=== PATIENT | male | born 1990 | race Caucasian/White ===

== ENCOUNTER 2016-04-22 17:42 | Inpatient (IN) | payer OTHER ==
[~2016-04-22] VITALS: Ht 182.9 cm; Wt 65.4 kg
[2016-04-22] MEDS ORDERED: XANA0.25 PO (17:56)
[2016-04-22 18:31] LABS: MEAN CORPUSCULAR HEMOGLOBIN 28.4 pg (27.0-33.0); MEAN CORPUSCULAR HGB CONC 33.7 g/dl (32.0-36.5); MEAN CORPUSCULAR VOLUME 84.3 fl (80.0-96.0); RED CELL DISTRIBUTION WIDTH 13.2 % (11.5-14.5); WHITE BLOOD COUNT 8.5 K/mm3 (4.0-10.0)
[2016-04-22 18:49] LABS: METHADONE URINE NEGATIVE (NEGATIVE)
[2016-04-22 18:58] LABS: ALBUMIN 4.1 GM/DL (3.2-5.2); ALBUMIN/GLOBULIN RATIO 1.17 (1.00-1.93); ALKALINE PHOSPHATASE 79 U/L (45-117); ALT/SGPT 18 U/L (12-78); ANION GAP 8 MEQ/L (8-16); AST/SGOT 12 U/L (15-37); BILIRUBIN,DIRECT < 0.1 MG/DL (0.0-0.2); BILIRUBIN,TOTAL 0.2 MG/DL (0.2-1.0); BLOOD UREA NITROGEN 19 MG/DL (7-18); CALCIUM LEVEL 8.3 MG/DL (8.5-10.1); CARBON DIOXIDE LEVEL 30 MEQ/L (21-32); CHLORIDE LEVEL 105 MEQ/L (98-107); CREATININE FOR GFR 0.99 MG/DL (0.70-1.30); GLOMERULAR FILTRATION RATE > 60.0 (>60); GLUCOSE, FASTING 99 MG/DL (70-105); SODIUM LEVEL 143 MEQ/L (136-145); TOTAL PROTEIN 7.6 GM/DL (6.4-8.2)
[2016-04-22] MEDS ORDERED: ESCI20TA PO (19:52)
[2016-04-22] MEDS ORDERED: diphenhydrAMINE INJ 50MG/ML VIAL (J1200) IM ONE (21:15)
[2016-04-22] MEDS ORDERED: HALOPERIDOL 5 MG/ML VIAL (J1630) IM ONE (21:15)
[2016-04-22] MEDS ORDERED: LORazepam 2 MG/ML VIAL (J2060) IM ONE (21:15)
[2016-04-22] MEDS ORDERED: MAALOX 30 ML SUSP *UDC PO PRN (21:45)
[2016-04-22] MEDS ORDERED: MOM 30ML SUSPENSION UDC PO PRN (21:45)
[2016-04-22] MEDS ORDERED: ACETAMINOPHEN TAB 650MG DOSE (2X325MG) PO PRN (21:45)
[2016-04-23 01:23] VITALS: BP 114/66
[2016-04-23] MEDS ORDERED: HALOPERIDOL 5 MG TAB PO PRN (13:30)
[2016-04-23] MEDS ORDERED: diphenhydrAMINE 50 MG CAP PO PRN (13:30)
[2016-04-23 18:00] VITALS: BP 132/62
[2016-04-23] MEDS: NICOTINE 21MG/24HR 1 EA TRANSDERMAL TD SCH (19:43)
[2016-04-23] MEDS: LORazepam 2 MG TAB PO PRN (21:03)
[2016-04-23] MEDS: traZODone 50 MG TAB PO PRN (21:03)
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
[2016-04-24] MEDS: LORazepam 2 MG TAB PO PRN ×3 (06:26→21:29)
[2016-04-24 06:37] VITALS: BP 112/73
[2016-04-24] MEDS: NICOTINE 21MG/24HR 1 EA TRANSDERMAL TD SCH (08:31)
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
[2016-04-24 11:32] LABS: FREE T4 1.15 NG/DL (0.76-1.46)
[2016-04-24 18:00] VITALS: BP 129/82
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
[2016-04-24] MEDS: traZODone 50 MG TAB PO PRN (21:29)
[2016-04-25] MEDS: LORazepam 2 MG TAB PO PRN ×2 (01:47→06:46)
[2016-04-25 06:34] VITALS: BP 126/90
[2016-04-25] MEDS ORDERED: NICO21PAT TD (08:19)
[2016-04-25] MEDS: NICOTINE 21MG/24HR 1 EA TRANSDERMAL TD SCH (09:00)
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
--- NOTE | 2016-04-25 22:08 | ECGEPIP ---
Stationary ECG Study [facility] Test Date: 2016-04-24 Pat Name: RAISA MATTHEWS Department: Room: [place] [address] Gender: M Respiratory Services Manager: ZAID : 1990 Requested By: Agatha Clayton Order Number: [id number] Reading MD: Alexandra Espitia Measurements Intervals [place] Rate: 111 P: 81 [place]: 136 QRS: 100 QRSD: 100 T: 58 QT: 318 QTc: 434 Interpretive Statements SINUS TACHYCARDIA RIGHT ATRIAL ENLARGEMENT BORDERLINE RIGHT AXIS DEVIATION SIMILAR 12/25/15 Electronically Signed On 04-25-2016 22:07:57 EDT by Alexandra Espitia
== END 2016-04-25 10:00 | disposition home or self-care (01) | DRG 881 ==
LOC: M ED 18:44 → M ED INP 21:41 → M PSY 04-23 01:25
PROVIDERS: ADMIT Psychiatry & Neurology Child & Adolescent Psychiatry; ATTEND Internal Medicine Addiction Medicine
DX: F32.9 Major depressive disorder, single episode, unspecified (principal); F41.9 Anxiety disorder, unspecified; F17.210 Nicotine dependence, cigarettes, uncomplicated; M25.511 Pain in right shoulder; R07.81 Pleurodynia; R94.6 Abnormal results of thyroid function studies; Z63.9 Problem related to primary support group, unspecified; Z91.5 Personal history of self-harm; Z88.1 Allergy status to other antibiotic agents; Z79.899 Other long term (current) drug therapy

== ENCOUNTER → 2016-11-07 | Outpatient (CLI) | payer OTHER, MEDICAID ==
[~2016-11-07] MED LIST: ESCI20TA PO; NICO21PAT TD; XANA0.25 PO
== END ==
LOC: M OUTALCOH 08:25
PROVIDERS: ATTEND Psychiatry & Neurology Psychiatry
DX: F14.20 Cocaine dependence, uncomplicated (principal); F12.20 Cannabis dependence, uncomplicated

== ENCOUNTER 2018-02-28 01:26 | Emergency (ER) | payer MEDICAID, OTHER ==
[~2018-02-28 01:26] MED LIST changes: +TOBR0.3S OP; +ZITHTAB PO
[2018-02-28] MEDS ORDERED: NS 1,000 ML IV SCH (01:37)
[2018-02-28 01:40] VITALS: BP 128/70
[2018-02-28 01:40] LABS: HEMATOCRIT 43.9 % (42.0-52.0); HEMOGLOBIN 14.9 g/dl (13.5-17.5); MEAN CORPUSCULAR HEMOGLOBIN 29.5 pg (27.0-33.0); MEAN CORPUSCULAR HGB CONC 33.9 g/dl (32.0-36.5); MEAN CORPUSCULAR VOLUME 86.9 fl (80.0-96.0); PLATELET COUNT, AUTOMATED 200 10^3/uL (150-450); RED BLOOD COUNT 5.05 10^6/uL (4.30-6.10); WHITE BLOOD COUNT 11.9 10^3/uL (4.0-10.0)
[2018-02-28 02:11] LABS: ACETAMINOPHEN LEVEL < 2.0 UG/ML (10.0-30.0); ALBUMIN 4.4 GM/DL (3.2-5.2); ALT/SGPT 219 U/L (12-78); BILIRUBIN,DIRECT 0.1 MG/DL (0.0-0.2); BILIRUBIN,TOTAL 0.2 MG/DL (0.2-1.0); BLOOD UREA NITROGEN 17 MG/DL (7-18); CALCIUM LEVEL 8.6 MG/DL (8.5-10.1); CARBON DIOXIDE LEVEL 23 MEQ/L (21-32); CHLORIDE LEVEL 108 MEQ/L (98-107); CREATININE FOR GFR 1.42 MG/DL (0.70-1.30); ETHYL ALCOHOL (ETHANOL) 0.164 % (0.000-0.010); GLOMERULAR FILTRATION RATE > 60.0 (>60); GLUCOSE, FASTING 169 MG/DL (70-100); POTASSIUM SERUM 3.9 MEQ/L (3.5-5.1); SALICYLATE LEVEL < 1.7 MG/DL (5.0-30.0); SODIUM LEVEL 142 MEQ/L (136-145); TOTAL PROTEIN 7.9 GM/DL (6.4-8.2)
--- NOTE | 2018-02-28 08:13 | REP ---
Portable chest: Single view. History: Unresponsive. Comparison study: December 25, 2015 Findings: The lungs are well inflated and clear. There is no evidence of pneumothorax or hydrothorax. Mediastinum is not widened. Heart size is normal. No fracture or bony destructive lesion is seen. Pulmonary vasculature is not increased. EKG monitoring electrodes overlie the chest. Impression: No active disease. Electronically Signed by Shaheed Morel MD 02/28/2018 08:04 A
--- NOTE | 2018-03-01 10:29 | ECGEPIP ---
Stationary ECG Study [facility] - ED Test Date: 2018-02-28 Pat Name: RAISA MATTHEWS Department: Room: - Gender: M Math Interventionist: : 1990 Requested By: LATANYA Lopez Order Number: [id number] Reading MD: Nadine Joseph Measurements Intervals [place] Rate: 102 P: 71 [place]: 148 QRS: 64 QRSD: 98 T: 28 QT: 325 QTc: 425 Interpretive Statements SINUS TACHYCARDIA ABNORMAL RHYTHM ECG RAD SIMILAR 04/24/16 Electronically Signed On 03-01-2018 10:29:37 EST by Nadine Joseph
== END 2018-02-28 02:21 | disposition left against medical advice (07) ==
LOC: EDBD 01:26 → M ED 01:26
DX: T40.1X1A Poisoning by heroin, accidental (unintentional), initial encounter (principal); X58.XXXA Exposure to other specified factors, initial encounter; Y92.89 Other specified places as the place of occurrence of the external cause; F33.9 Major depressive disorder, recurrent, unspecified; F41.9 Anxiety disorder, unspecified; Z88.1 Allergy status to other antibiotic agents; F19.10 Other psychoactive substance abuse, uncomplicated
CPT/HCPCS: 36415; 71045; 80048; 80076; 84443; 85027; 99284; G0480

== ENCOUNTER 2018-02-28 23:35 | Emergency (ER) | payer MEDICAID ==
[2018-02-28 23:38] VITALS: BP 132/81
== END 2018-02-28 23:43 | disposition left against medical advice (07) ==
LOC: M ED 23:35
DX: Z53.29 Procedure and treatment not carried out because of patient's decision for other reasons (principal)

== ENCOUNTER → 2019-01-31 | Outpatient (REF) | payer OTHER | LOC: M SFHCLERA 11:22 | PROVIDERS: ATTEND Nurse Practitioner Family | DX: R50.9 Fever, unspecified (principal) ==

== ENCOUNTER → 2022-09-01 | Outpatient (CLI) | payer OTHER ==
[~2022-09-01] MED LIST changes: -ESCI20TA PO; +ESCI20TA16 PO; -TOBR0.3S OP; +TOBR0.3S10 OP
[2022-09-01 13:11] LABS: BASO # 0.1 10^3/uL (0.0-0.2); BASO % 0.7 % (0.0-1.0); EOS # 0.1 10^3/uL (0.0-0.5); EOS % 1.2 % (0.0-3.0); HEMATOCRIT 33.4 % (42.0-52.0); HEMOGLOBIN 11.5 g/dl (13.5-17.5); LYMPH # 0.9 10^3/uL (1.5-5.0); MEAN CORPUSCULAR HEMOGLOBIN 29.1 pg (27.0-33.0); MEAN CORPUSCULAR HGB CONC 34.4 g/dl (32.0-36.5); MEAN CORPUSCULAR VOLUME 84.6 fl (80.0-96.0); MONO # 0.7 10^3/uL (0.0-0.8); MONO % 9.2 % (2.0-8.0); NEUTROPHILS # 5.6 10^3/uL (1.5-8.5); NEUTROPHILS % 76.3 % (36.0-66.0); PLATELET COUNT, AUTOMATED 273 10^3/uL (150-450); RED BLOOD COUNT 3.95 10^6/uL (4.30-6.10); WHITE BLOOD COUNT 7.3 10^3/uL (4.0-10.0)
[2022-09-01 13:39] LABS: ALBUMIN 3.3 G/DL (3.2-5.2); ALKALINE PHOSPHATASE 95 U/L (46-116); ALT/SGPT 62 U/L (7.0-40); AST/SGOT 45 U/L (<34); BILIRUBIN,TOTAL 0.3 MG/DL (0.3-1.2); BLOOD UREA NITROGEN 15 MG/DL (9-23); CALCIUM LEVEL 8.3 MG/DL (8.5-10.1); CARBON DIOXIDE LEVEL 29 MMOL/L (20-31); CHLORIDE LEVEL 104 MMOL/L (98-107); GLOMERULAR FILTRATION RATE > 60.0 (>60); GLUCOSE, FASTING 64 MG/DL (60-100); POTASSIUM SERUM 4.2 MMOL/L (3.5-5.1); SODIUM LEVEL 141 MMOL/L (136-145); TOTAL PROTEIN 6.8 G/DL (5.7-8.2)
[2022-09-03 02:13] LABS: IgG P18 AB Absent (.); IgG P23 AB Absent (.); IgG P28 AB Absent (.); IgG P30 AB Absent (.); IgG P39 AB Present (.); IgG P41 AB Present (.); IgG P45 AB Absent (.); IgG P66 AB Absent (.); IgG P93 AB Absent (.); IgM P23 AB Present (.); IgM P39 AB Present (.); IgM P41 AB Present (.); LYME IgG WB INTERPRETATION Negative (.); LYME IgM WB INTERPRETATION Positive (.)
== END ==
LOC: M WUC 09:08
PROVIDERS: ATTEND Physician Assistant
DX: L03.319 Cellulitis of trunk, unspecified (principal)

== ENCOUNTER → 2024-08-26 | Outpatient (REF) | payer OTHER | LOC: M SFHCLERA 16:03 | PROVIDERS: ATTEND Internal Medicine | DX: Z00.00 Encounter for general adult medical examination without abnormal findings (principal) ==

== ENCOUNTER → 2024-09-23 | Outpatient (CLI) | payer OTHER ==
[2024-09-23 13:31] LABS: BASO # 0.1 10^3/uL (0.0-0.2); BASO % 0.9 % (0.0-1.0); EOS # 0.1 10^3/uL (0.0-0.5); EOS % 0.9 % (0.0-3.0); LYMPH # 1.2 10^3/uL (1.5-5.0); LYMPH % 21.7 % (24.0-44.0); MONO # 0.5 10^3/uL (0.0-0.8); MONO % 8.7 % (2.0-8.0); NEUTROPHILS # 3.7 10^3/uL (1.5-8.5); NEUTROPHILS % 67.6 % (36.0-66.0); PLATELET COUNT, AUTOMATED 181 10^3/uL (150-450)
[2024-09-23 13:41] LABS: APPEARANCE, URINE CLEAR (CLEAR); BACTERIA, URINE AUTO NEGATIVE (NEGATIVE); BILIRUBIN, URINE AUTO NEGATIVE (NEGATIVE); BLOOD, URINE BLOOD NEGATIVE (NEGATIVE); GLUCOSE, URINE (UA) AUTO NEGATIVE (NEGATIVE); KETONE, URINE AUTO NEGATIVE (NEGATIVE); LEUKOCYTE ESTERASE, URINE AUTO NEGATIVE (NEGATIVE); MUCUS, URINE SMALL (NEGATIVE); NITRITE, URINE AUTO NEGATIVE (NEGATIVE); PROTEIN, URINE AUTO NEGATIVE (NEGATIVE); RBC, URINE AUTO 0 /HPF (0-3); SPECIFIC GRAVITY URINE AUTO 1.017 (1.002-1.035); SQUAMOUS EPITHELIAL CELL UR AU 0 /HPF (0-6); UROBILINOGEN, URINE AUTO 0.2 mg/dL (0.0-2.0); WBC, URINE AUTO 0 /HPF (0-3)
[2024-09-23 13:44] LABS: ESTIMATED AVERAGE GLUCOSE 94.0 MG/DL (60-110)
[2024-09-23 14:06] LABS: ALT/SGPT 102 U/L (7.0-40); AST/SGOT 62 U/L (<34); CALCIUM LEVEL 9.5 MG/DL (8.5-10.1); CARBON DIOXIDE LEVEL 33 MMOL/L (20-31); CHLORIDE LEVEL 102 MMOL/L (98-107); CHOLESTEROL LEVEL 172 MG/DL (<200); CHOLESTEROL RISK RATIO 2.28 (<5); CREATININE FOR GFR 0.87 MG/DL (0.70-1.30); GLOMERULAR FILTRATION RATE > 90.0 (>60); LDL CHOLESTEROL 85.8 MG/DL (<100); NON-HDL-C 96.8 MG/DL; POTASSIUM SERUM 4.5 MMOL/L (3.5-5.1); SODIUM LEVEL 143 MMOL/L (136-145); TRIGLYCERIDES LEVEL 55 MG/DL (<150)
== END ==
LOC: M WUC 10:39
PROVIDERS: ATTEND Internal Medicine
DX: Z00.00 Encounter for general adult medical examination without abnormal findings (principal)

== ENCOUNTER → 2024-09-23 | Outpatient (CLI) | payer OTHER | LOC: M WHC 09:14 | PROVIDERS: ATTEND Internal Medicine | DX: N50.3 Cyst of epididymis (principal); I86.1 Scrotal varices; N50.89 Other specified disorders of the male genital organs ==